=== PATIENT | female | born 1985 | race Caucasian/White ===

== ENCOUNTER 2020-03-08 15:55 | Observation (INO) | payer OTHER ==
[~2020-03-08 15:55] MED LIST: DSS100 PO; IBUP-2071 PO; PREN-64 PO
[2020-05-13] MEDS ORDERED: PREN-217 PO (13:56)
[2020-05-13 14:16] VITALS: BP 109/65
== END 2020-05-13 15:10 | disposition home or self-care (01) ==
LOC: 4S 05-13 13:55
PROVIDERS: ADMIT Obstetrics & Gynecology; ATTEND Obstetrics & Gynecology
DX: O36.5930 Maternal care for other known or suspected poor fetal growth, third trimester, not applicable or unspecified (principal); Z3A.37 37 weeks gestation of pregnancy
CPT/HCPCS: 59025; 76811; 99219

== ENCOUNTER 2020-05-23 09:40 | Observation (INO) | payer OTHER ==
[~2020-05-23] VITALS: Ht 157.5 cm; Wt 85.3 kg
[~2020-05-23 09:40] MED LIST changes: +PREN-217 PO
[2020-05-23 10:44] VITALS: BP 123/77
== END 2020-05-23 12:10 | disposition home or self-care (01) ==
LOC: 4S 09:40
PROVIDERS: ADMIT Obstetrics & Gynecology; ATTEND Obstetrics & Gynecology
DX: O36.5930 Maternal care for other known or suspected poor fetal growth, third trimester, not applicable or unspecified (principal); Z3A.38 38 weeks gestation of pregnancy
CPT/HCPCS: 59025; 76811; 99219

== ENCOUNTER 2020-05-23 13:22 | Inpatient (IN) | payer OTHER ==
[~2020-05-23] VITALS: Ht 160 cm; Wt 85.7 kg
[2020-05-26] MEDS ORDERED: LIDOCAINE/PF 1% 30 ML VIAL SQ PRN (09:00)
[2020-05-26] MEDS ORDERED: OXYTOCIN 30 UNITS/LACT RINGERS 500 ML IV ONE (09:00)
[2020-05-26] MEDS ORDERED: FentaNYL CITRATE PF 100 MCG/2 ML VIAL IVP PRN (09:00)
[2020-05-26] MEDS ORDERED: METOCLOPRAMIDE HCL 5 MG/ML 2 ML VIAL IVP PRN (09:00)
[2020-05-26] MEDS ORDERED: METHYLERGONOVINE MALEATE 0.2 MG/ML VIAL IM PRN (09:00)
[2020-05-26] MEDS ORDERED: CITRIC ACID/SODIUM CITRATE 30 ML SOLUTION UDCUP PO PRN (09:00)
[2020-05-26] MEDS ORDERED: OXYTOCIN 30 UNITS/LACT RINGERS 500 ML IV PRN ×2 (09:00)
[2020-05-26] MEDS ORDERED: RINGERS SOLUTION,LACTATED 1,000 ML IV PRN (09:00)
[2020-05-26 09:30] LABS: BASOPHILS % (AUTO) 0.5 % (0.0-2.0); EOSINOPHILS % (AUTO) 1.5 % (1.0-6.0); HEMATOCRIT 33.9 % (36-46); HEMOGLOBIN 11.5 g/dL (12.0-16.0); LYMPHOCYTES % (AUTO) 12.2 % (22.0-44.0); MEAN CORPUSCULAR HEMOGLOBIN 30.9 pg (26.0-34.0); MEAN CORPUSCULAR VOLUME 91 fL (80-100); MONOCYTES # (AUTO) 0.4 K/uL (0.1-1.0); MONOCYTES % (AUTO) 4.3 % (2.0-9.0); NEUTROPHILS # (AUTO) 6.7 K/uL (1.8-7.7); NEUTROPHILS % (AUTO) 81.5 % (40.0-70.0); PLATELET COUNT (AUTO) 234 K/uL (150-450); RED BLOOD CELL COUNT(AUTO) 3.73 MIL/uL (4.00-5.20); RED CELL DISTRIBUTION WIDTH 13.4 % (11.5-14.5)
[2020-05-26] MEDS: RINGERS SOLUTION,LACTATED 1,000 ML IV SCH ×2 (10:15→16:50)
[2020-05-26] MEDS ORDERED: MISOPROSTOL 50 MCG TABLET PO ONE (10:15)
[2020-05-26 10:34] VITALS: BP 125/72
[2020-05-26 12:02] LABS: COVID AG,FIA SOURCE NASOPHARYNGEAL
[2020-05-26] MEDS ORDERED: ROPIVACAINE HCL/PF 0.2% 100 ML ED ONE (16:03)
[2020-05-26] MEDS ORDERED: ROPIVACAINE HCL/PF 0.2% 100 ML ED PRN (16:30)
[2020-05-26] MEDS ORDERED: NALBUPHINE HCL 10 MG/ML VIAL IVP PRN (16:30)
[2020-05-26] MEDS ORDERED: DiphenhydrAMINE HCL 50 MG/ML VIAL IVP PRN (16:30)
[2020-05-26] MEDS ORDERED: ONDANSETRON HCL 4 MG/2 ML VIAL IVP PRN (16:30)
[2020-05-26] MEDS ORDERED: LANOLIN 7 GM OINTMENT TP PRN (20:00)
[2020-05-26] MEDS ORDERED: OXYGEN THERAPY IH SCH (20:00)
[2020-05-26] MEDS ORDERED: GLYCERIN/WITCH HAZEL LEAF 40 PADS JAR TP PRN (20:00)
[2020-05-26] MEDS ORDERED: BENZOCAINE 20%/MENTHOL 56 GM SPRAY CANISTER TP PRN (20:00)
[2020-05-26] MEDS ORDERED: ACETAMINOPHEN/CODEINE 300-30 MG TABLET PO PRN ×2 (20:00)
[2020-05-26] MEDS: MAGNESIUM HYDROXIDE SUSPENSION 30 ML UDCUP PO SCH (22:18)
[2020-05-26] MEDS: IBUPROFEN 800 MG TABLET PO SCH (22:19)
[2020-05-27] MEDS: IBUPROFEN 800 MG TABLET PO SCH ×3 (04:06→18:34)
[2020-05-27] MEDS: MAGNESIUM HYDROXIDE SUSPENSION 30 ML UDCUP PO SCH (10:25)
[2020-05-27] MEDS ORDERED: GUM MASTIC/STORAX/MSAL/ALCOHOL LIQUID 0.67 ML VIAL TP ONE (11:12)
[2020-05-27] MEDS ORDERED: IBUP-2071 PO (17:26)
[2020-05-27] MEDS ORDERED: DOCU-275 PO (17:26)
[2020-05-27] MEDS ORDERED: FERR-89 PO (17:27)
== END 2020-05-27 19:35 | disposition home or self-care (01) | DRG 807 ==
LOC: OBSVTOIN 05-26 08:45 → 4S 05-26 08:45
PROVIDERS: ADMIT Obstetrics & Gynecology; ATTEND Obstetrics & Gynecology
PROC: 10E0XZZ Delivery of Products of Conception, External Approach (ICD-10-PCS; principal; 2020-05-26)
PROC: 10907ZC Drainage of Amniotic Fluid, Therapeutic from Products of Conception, Via Natural or Artificial Opening (ICD-10-PCS; 2020-05-26)
PROC: 0HQ9XZZ Repair Perineum Skin, External Approach (ICD-10-PCS; 2020-05-26)
PROC: 3E0R3BZ Introduction of Anesthetic Agent into Spinal Canal, Percutaneous Approach (ICD-10-PCS; 2020-05-26)
PROC: 00HU33Z Insertion of Infusion Device into Spinal Canal, Percutaneous Approach (ICD-10-PCS; 2020-05-26)
DX: O70.0 First degree perineal laceration during delivery (principal); Z37.0 Single live birth; Z3A.39 39 weeks gestation of pregnancy; Z20.822 Contact with and (suspected) exposure to COVID-19
CPT/HCPCS: 86850; 86900; 86901; 87426; A9575; J2590; J2795; J7120